=== PATIENT | female | born 1980 | race Two or more races ===

== ENCOUNTER 2025-01-29 00:34 | Emergency (ER) | payer OTHER ==
[~2025-01-29] VITALS: Ht 157.5 cm; Wt 88.8 kg
--- NOTE | 2025-01-29 01:04 | ED.PDOC ---
HPI Allergic reaction HPI Comments C/C of possible allergic reaction. Pt states family brought food home from restaurant that may have been cooked with shellfish. Pt has allergy to shellfish and shrimp. Pt states this occurred at 01/28/25, 2300 and felt "throat was thick." Pt took OTC Benadryl 25mg PO prior to arrival. Pt breathing even and unlabored on room air, speaking in clear, even sentences. VSS. No s/s of distress noted. Chief Complaint: Allergic Reaction Time Seen by MD: 00:37 Reviewed Notes: Nurses Notes, Medications, Allergies Allergies: Coded Allergies: Shellfish Allergy (Verified Allergy, Severe, 01/29/25) Shrimp Flavor (Verified Allergy, Severe, 01/29/25) Ciprofloxacin (Verified Allergy, Intermediate, 12/20/14) Prochlorperazine (Verified Allergy, Intermediate, 12/20/14) Uncoded Allergies: SULFA (Allergy, Intermediate, 12/20/14) Home Meds Active Scripts Methylprednisolone (Medrol Dosepak) 4 Mg Arnie, 4 MG PO UD for 6 Days, #21 TAB UAD Prov:ZAHIRA MALONEY [facility] 01/29/25 Famotidine (PEPCID TABLET) 20 Mg Tb, 1 TAB PO BID for 6 Days, #12 TAB Prov:ZAHIRA MALONEY [facility] 01/29/25 Information Source: Patient Mode of Arrival: Ambulatory Past Medical History PAST MEDICAL HISTORY: Denies Surgical History: Denies all surgeries [employer] History: No Pertinent [employer]NER History Family History Family History: Unknown Social History Smoker: Non-Smoker Alcohol: Denies ETOH Use Drugs: Denies Drug Use Lives In: Home Constitutional: denies: chills, diaphoresis, fatigue, fever, malaise, sweats, weakness, others EENTM: reports: throat swelling; denies: blurred vision, double vision, ear bleeding, ear discharge, ear drainage, ear pain, ear ringing, eye pain, eye redness, hearing loss, mouth pain, mouth swelling, nasal discharge, nose bleeding, nose congestion, nose pain, photophobia, tearing, throat pain, voice changes, others Respiratory: denies: cough, hemoptysis, orthopnea, SOB at rest, shortness of breath, SOB with excertion, stridor, wheezing, others Cardiovascular: denies: chest pain, dizzy spells, diaphoresis, Dyspnea on exertion, edema, irregular heart beat, left arm pain, lightheadedness, palpitations, PND, syncope, others Gastrointestinal: denies: abdomen distended, abdominal pain, blood streaked bowels, constipated, diarrhea, dysphagia, difficulty swallowing, hematemesis, melena, nausea, poor appetite, poor fluid intake, rectal bleeding, rectal pain, vomiting, others Genitourinary: denies: abnormal vagina bleeding, burning, dyspareunia, dysuria, flank pain, frequency, hematuria, incontinence, pain, , vagina discharge, urgency, others Neurological: denies: dizziness, fainting, headache, left sided numbness, left sided weakness, numbness, paresthesia, pre-existing deficit, right sided numbness, right sided weakness, seizure, speech problems, tingling, tremors, weakness, others Musculoskeletal: denies: back pain, gout, joint pain, joint swelling, muscle pain, muscle stiffness, neck pain, others Integumetry: denies: bruises, change in color, change in hair/nails, dryness, laceration, lesions, lumps, rash, wounds, others Allergic/Immunocompromised: denies: Difficulty Healing, Frequent Infections, Hives, Itching, others Hematologic/Lymphatic: denies: anemia, blood clots, easy bleeding, easy bruising, swollen glands, others Endocrine: denies: excessive hunger, excessive sweating, excessive thirst, excessive urination, flushing, intolerance to cold, intolerance to heat, unexplained weight gain, unexplained weight loss, others Psychiatric: denies: anxiety, bipolar disorder, depression, hopeless, panic disorder, schizophrenia, sleepless, suicidal, others Physical Exam General Appearance: No Apparent Distress, Normal HEENT: Normal ENT Inspection, Pharynx Normal, TMs Normal Neck: Full Range of Motion, Non-Tender Respiratory: Lungs Clear, No Accessory Muscle Use, No Respiratory Distress, Normal Breath Sounds Cardiovascular: No Edema, No JVD, No Murmur, No Gallop, Normal Peripheral Pulses, Regular Rate/Rhythm Breast Exam: Deferred Gastrointestinal: No Organomegaly, Non Tender, No Pulsatile Mass, Normal Bowel Sounds, Soft Genitalia: Deferred Pelvic: Deferred Rectal: Deferred Extremities: Normal capillary refill, Normal inspection, Normal range of motion, Non-tender, No pedal edema Musculoskeletal : Apperance: Normal Neurologic: Alert, 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 Was a procedure done?: No Differential diagnosis (all) Differential Diagnosis: Angioedema, Bronchospasm, Hypotension, Shock, Urticaria X-Ray, Labs, Meds, VS Vital Signs Date Time Temp Pulse Resp B/P (MAP) Pulse Ox O2 Delivery O2 Flow Rate FiO2 01/29/25 01:40 98.5 94 18 126/83 (97) 96 98.5 01/29/25 01:24 91 18 96 Room Air 01/29/25 00:46 17 97 Room Air* 0 21 01/29/25 00:46 105 17 Room Air 0 01/29/25 00:46 99.0 105 17 153/90 (111) 97 99.0 Current Medications Medications (Trade) Dose Ordered Sig/Wendy Route Start Time Stop Time Status Last Admin Dexamethasone Sodium Phosphate (Decadron Injection) 10 mg ONCE ONCE IM 01/29/25 01:00 01/29/25 01:01 DC 01/29/25 01:24 X-Ray, Labs, Meds, VS Comment PATIENT GIVEN DECADRON IM. PATIENT REPORTS IMPROVEMENT SYMPTOMS DENIES ANY THROAT SWELLING DIFFICULTY BREATHING SHORTNESS OF BREATH OR CHEST PAIN REQUESTING DISCHARGE AT THIS TIME SCRIPT OUTPATIENT MEDROL DOSEPAK AND PEPCID ADVISED TO TAKE MEDICATIONS PRESCRIBED SIDE EFFECTS DISCUSSED. ADVISED TO AVOID SHELLFISH FOLLOW UP WITH HER PCP IN 2 DAYS REFERRAL FOR ALLERGY TESTING CONSIDER CARRY IN A EPIPEN. ADVISED TO REST INCREASE P.O. FLUIDS WITH ELECTROLYTES PRECAUTIONS GIVEN PATIENT INDICATES UNDERSTANDING AGREES WITH DISCHARGE PLAN OF CARE Time of 1ST Reevaluation: 01:03 Reevaluation 1ST: Unchanged Time of 2ND Reevaluation: :25 Reevaluation 2ND: Improved Patient Education/Counseling: Diagnosis, Treatment, Prognosis, Need For Follow Up Family Education/Counseling: Diagnosis, Treatment, Prognosis, Need For Follow Up Departure 1 Departure Time of Disposition: : Impression: Primary Impression: Allergic reaction Qualified Codes: T78.40XA - Allergy, unspecified, initial encounter Disposition: HOME / SELF CARE / HOMELESS Condition: Stable e-Prescriptions Methylprednisolone (Medrol Dosepak) 4 Mg Arnie 4 MG PO UD for 6 Days, #21 TAB UAD Prov: ZAHIRA MALONEY 01/29/25 Famotidine (PEPCID TABLET) 20 Mg Tb 1 TAB PO BID for 6 Days, #12 TAB Prov: ZAHIRA MALONEY 01/29/25 Discharged With: Spouse Critical Care Note Critical Care Time?: No Stability Stability form required: ZAHIRA Jackson Jan 29, 2025 01:04
[2025-01-29] MEDS: DexAMETHasone SOD PHOS 10MG/1ML VIAL INJ IM ONE (01:24)
[2025-01-29] MEDS ORDERED: FAMO20TA10 PO (01:35)
[2025-01-29] MEDS ORDERED: METH4PAK PO (01:35)
[2025-01-29 01:40] VITALS: BP 126/83; PULSE 94; RESP 18; TEMP 98.5; O2SAT 96
== END 2025-01-29 02:08 | disposition home or self-care (01) ==
LOC: ER 00:34
DX: T78.40XA Allergy, unspecified, initial encounter (principal); Z79.899 Other long term (current) drug therapy; Z88.1 Allergy status to other antibiotic agents; Z88.2 Allergy status to sulfonamides; Z91.013 Allergy to seafood; X58.XXXA Exposure to other specified factors, initial encounter
CPT/HCPCS: 96372; 99283; J1100